=== PATIENT | female | born 1960 | race African-American/Black ===

== ENCOUNTER 2025-10-12 01:28 | Emergency (ER) | payer MEDICAID ==
[~2025-10-12] VITALS: Ht 160 cm; Wt 100.0 kg
[2025-10-12 01:35] VITALS: BP 167/100; PULSE 98; RESP 18; TEMP 98.6; O2SAT 100
[2025-10-12] MEDS: ACETAMINOPHEN 500MG TABLET PO ONE (02:30)
== END 2025-10-12 03:57 | disposition left against medical advice (07) ==
LOC: ER 01:28
DX: S09.90XA Unspecified injury of head, initial encounter (principal); Y09 Assault by unspecified means; Y93.89 Activity, other specified; Y92.89 Other specified places as the place of occurrence of the external cause; Y99.8 Other external cause status
CPT/HCPCS: 99283

== ENCOUNTER 2025-10-12 06:46 | Emergency (ER) | payer MEDICAID ==
[~2025-10-12] VITALS: Ht 160 cm; Wt 93.2 kg
[2025-10-12 06:50] VITALS: BP 170/96; PULSE 104; RESP 16; TEMP 36.8; O2SAT 99
== END 2025-10-12 07:40 | disposition home or self-care (01) ==
LOC: ER 06:46
DX: Z00.00 Encounter for general adult medical examination without abnormal findings (principal); F20.0 Paranoid schizophrenia; Z59.01 Sheltered homelessness
CPT/HCPCS: 99282